=== PATIENT | female | born 1940 | race Caucasian/White ===

== ENCOUNTER → 2016-04-05 | Day surgery (SDC) | payer MEDICARE ==
--- NOTE | 2016-04-01 09:32 | HP ---
PREOPERATIVE HISTORY AND PHYSICAL: DATE OF SURGERY/ADMISSION: 04/05/16 PROCEDURE: Left proximal row carpectomy. CHIEF COMPLAINT: Left wrist pain. HISTORY OF PRESENT ILLNESS: This is a 75-year-old female with persistent pain in her left wrist that has been present for several years now. 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 The patient reports that the pain is getting gradually getting worse over time. She denies any numbness or tingling but has noticed a slight decrease in her range of motion. The patient has undergone a right wrist proximal carpectomy in the past, approximately [address] Wood and got great relief from that. 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 PAST MEDICAL HISTORY: 1. Hypertension. 2. Depression. 3. History of kidney stones. PAST SURGICAL HISTORY: 1. Hernia repair. 2. Bilateral total hip arthroplasties. 3. Kidney stone ablation. 4. Right wrist proximal row carpectomy. 5. Appendectomy. CURRENT MEDICATIONS: 1. Effexor XR 75 mg daily. 2. Hydrochlorothiazide 25 mg daily. ALLERGIES: PENICILLIN causes hives. FAMILY HISTORY: 1. Nonalcoholic cirrhosis. 2. Temporal arteritis. 3. Diabetes. SOCIAL HISTORY: Patient is employed as a potter. She denies tobacco use. She does admit to recreational marijuana smoking on occasion and admits to alcohol use on occasion. REVIEW OF SYSTEMS: General: Negative for fever, chills or night sweats. No known anesthesia problems. HEENT: Negative for headache, lightheadedness or syncopal episodes. Integumentary: Negative for abrasions, lesions or open wounds. Cardiothoracic: Negative for chest pain, palpitations or edema. Positive for hypertension. Pulmonary: Negative for shortness of breath with exertion, chronic cough, COPD. GI: Negative for nausea, vomiting, diarrhea, constipation or GERD. : Positive for history of kidney stones. Negative for nocturia, urinary frequency, urgency or history of UTIs. Musculoskeletal: Positive for current complaint. Negative for chronic or intermittent back pain or history of fractures. Neurological: Positive for depression. Negative for paresthesias, numbness, history of seizure, stroke or epilepsy. Endocrine: Negative for diabetes or thyroid issues. Hematologic: Negative for easy bruising, anemia, excessive bleeding or history of DVT. Infectious Disease: Negative for history of MRSA, hepatitis C or HIV. PHYSICAL EXAMINATION GENERAL: A well-developed, well-nourished 75-year-old female in no acute distress. VITAL SIGNS: Height 5 feet 3.5 inches, weight 136 pounds. Pulse rate 72, blood pressure 124/84. HEENT: Normocephalic, atraumatic. Pupils are equal, round and reactive to light and accommodation. Extraocular movements are intact. NECK: Supple. No palpable lymph nodes. Throat is clear. PULMONARY: Lungs are clear to auscultation bilaterally. No wheezes, rales or rhonchi. CARDIOTHORACIC: Regular rate and rhythm. S1, S2. No murmurs, rubs or gallops. No edema. ABDOMEN: Positive bowel sounds. Soft, nontender. MUSCULOSKELETAL: On exam of her left wrist there is no obvious deformity. There is minimal swelling. She has tenderness to palpation of the radiocarpal joint, more so on the radial side than on the ulnar side. She can flex to approximately 70 degrees and extend the wrist to approximately 70 degrees. She can make a fist and neurovascular function is intact. NEUROLOGICAL: Alert and oriented x3. Cranial nerves II through XII were intact. Sensation is intact to light touch. IMAGING STUDIES: X-rays of the left wrist, AP and lateral, show severe degenerative arthritis at the radioscaphoid joint. The lunate fossa appears preserved. 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 PLAN: The patient is scheduled to undergo a left wrist proximal row carpectomy with Dr. Wood on 04/05/16. She will return to the office 10 to 14 days postop for followup and suture removal. A prescription for [place] was e-scribed to the patient's pharmacy for postoperative pain management. TRACEY ALMAZAN [id number]/[facility] #: [id number] MTDGeetha
[~2016-04-05] MED LIST: Buffered Lidocaine 1% SYR 3ML* 3 ML/SYR SYRINGE INTRADERM ONE; Buffered Lidocaine 1% SYR 3ML* 3 ML/SYR SYRINGE ONE; Bupivacaine 0.5% SDV PF* 30 ML VIAL ONE; Clindamycin 900 MG IVPREMIX(* 900 MG/50 ML SDV IV ONE; HYDROcodone/ACETAMIN 5-325 MG* 1 TAB PO PRN; Ketorolac INJ* 30 MG/ML 1 ML VIAL ONE; Lidocaine 0.5%* 50 ML SDV ONE; Midazolam* 1 MG/ML 5 ML VIAL (5 MG) ONE; Ondansetron INJ* 2 MG/ML VIAL IV PRN; Propofol* 10 MG/ML 20 ML BTL IV PUSH ONE; fentaNYL* 50 MCG/ML 2 ML VIAL (100 MCG VIAL) IV PRN; fentaNYL* 50 MCG/ML 2 ML VIAL (100 MCG VIAL) ONE; oxyCODONE TAB* 5 MG TAB PO PRN
[2016-04-05 14:11] VITALS: BP 166/98
--- NOTE | 2016-04-06 00:48 | OP ---
DATE OF OPERATION: 04/05/16 - [facility] DATE OF : 42 SURGEON: Sarah Beth Wood MD COKE DRAWER: TRACEY Fields ANESTHESIOLOGIST: David Cuellar MD ANESTHESIA: IV regional. PRE-OP DIAGNOSIS: Left wrist arthritis. POST-OP DIAGNOSIS: Left wrist arthritis. OPERATIVE PROCEDURE: Left wrist proximal row carpectomy. ESTIMATED BLOOD LOSS: Zero. TOURNIQUET TIME: About 40 minutes. INDICATIONS FOR PROCEDURE: Alejandra is a 75-year-old female with arthritis of her left wrist from an old scapholunate ligament injury. She did very well on the right with a proximal row carpectomy and presents for the same on the left. Her lunate fossa and capitate articular surface are well preserved on x-ray. DESCRIPTION OF PROCEDURE: The patient was brought to the operating room, was given an IV regional anesthetic with a tourniquet around her left forearm. Skin of her left hand and forearm was prepped and draped in the usual sterile fashion. A longitudinal incision was made in the center of the dorsal aspect of the wrist. We dissected sharply down to the extensor retinaculum. The retinaculum was incised in the third compartment and the EPL tendon transposed radially. The wrist joint capsule was incised longitudinally and subperiosteally dissected off the distal radius. The scaphoid lunate and triquetrum were removed in their entirety in piecemeal fashion with a rongeur and the articular surface of the lunate fossa and capitate were in excellent condition. The capitate sat nicely in the lunate fossa. The wound was copiously irrigated with saline. The wrist joint capsule was reapproximated with 2-0 Polysorb suture, the retinaculum repaired with 2-0 Polysorb suture and the skin edges were reapproximated with 4-0 nylon suture. The wound was dressed with Xeroform, 4x4, Webril, and a volar splint. The patient tolerated the procedure well and was brought to the recovery room in good condition. [id number]/[facility] #: [id number] [facility]
== END | disposition home or self-care (01) ==
LOC: OREAST 10:13
PROVIDERS: ATTEND Orthopaedic Surgery
DX: M19.132 Post-traumatic osteoarthritis, left wrist (principal); I10 Essential (primary) hypertension
CPT/HCPCS: 88304; 88311; J1885; J2250; J2704; J3010

== ENCOUNTER 2017-12-16 12:29 | Observation (INO) | payer MEDICARE ==
--- NOTE | 2017-12-16 13:02 | ED ---
Neurological HPI - HPI Summary HPI Summary: 76 year old F presenting [facility] accompanied by male partner complains of confusion since 10:00 this morning. Symptoms aggravated by nothing. Symptoms alleviated by nothing. Her male partner reports that patient was asking repetitive questions and was unsure about what had happened last night and this morning. This morning, male partner and patient report having sexual intercourse before confusion began. He states he made her eat food and shower before coming to ED. - History of Current Complaint Chief Complaint: EDNeurologicalDeficit Stated Complaint: MEMORY ISSUES Time Seen by Provider: 12/16/17 12:51 Hx Obtained From: Patient, Other: - male partner Onset/Duration: Sudden Onset, Started hours ago - 10:00 today, Still Present Aggravating: Nothing Alleviating: Nothing - Allergy/Home Medications Allergies/Adverse Reactions: Allergies Allergy/AdvReac Type Severity Reaction Status Date / Time Penicillins Allergy Intermediate Rash Verified 12/16/17 14:02 PMH/Surg Hx/FS Hx/Imm Hx Previously Healthy: No Endocrine/Hematology History: Denies: Hx Sickle Cell Disease Cardiovascular History: Reports: Hx Hypertension - ON MEDS Denies: Hx Pacemaker/ICD, Other Cardiovascular Problems/Disorders Respiratory History: Denies: Other Respiratory Problems/Disorders GI History: Denies: Other GI Disorders History: Reports: Hx Kidney Stones - LEFT SIDE LITHOTRIPSY 2 YEARS AGO, Other Problems/Disorders - KIDNEY STONES Musculoskeletal History: Reports: Hx Arthritis - OSTEOARTHRITIS Denies: Hx Osteoporosis, Other Musculoskeletal History Sensory History: Reports: Hx Cataracts - HAD SURGERY, Hx Contacts or Glasses Denies: Hx Hearing Aid Opthamlomology History: Reports: Hx Cataracts - HAD SURGERY, Hx Contacts or Glasses Neurological History: Reports: Other Neuro Impairments/Disorders - LICHEN SCLEROSUS Psychiatric History: Reports: Hx Anxiety, Hx Depression - ON MEDICATION Denies: Hx Panic Disorder - Cancer History Hx Chemotherapy: No Hx Radiation Therapy: No - Surgical History Surgery Procedure, Year, and Place: LEFT HIP REPLACEMENT - [facility]. RIGHT HIP REPLACEMENT [facility]. [facility]. EXPLORATORY OF ABDOMIN - [facility]. APPENDECTOMY Hx Anesthesia Reactions: No Infectious Disease History: No Infectious Disease History: Denies: Traveled Outside the [place] in Last 30 Days - Family History Known Family History: Positive: Diabetes, Other - nonalcoholic cirrhosis, temporal arteritis - Social History Alcohol Use: Occasionally Hx Substance Use: No Substance Use Type: Reports: None Hx Tobacco Use: No Smoking Status (MU): Never Smoked Tobacco Review of Systems Negative: Fever Neurological: Other - confusion, repetitive questions and was unsure about what had happened last night and this morning All Other Systems Reviewed And Are Negative: Yes Physical Exam - Summary Physical Exam Summary: VITAL SIGNS: Reviewed. GENERAL: Patient is a well-developed and nourished female who is lying comfortable in the stretcher. Patient is not in any acute respiratory distress. HEAD AND FACE: No signs of trauma. No ecchymosis, hematomas or skull depressions. No sinus tenderness. EYES: PERRLA, EOMI x 2, No injected conjunctiva, no nystagmus. No photophobia. EARS: Hearing grossly intact. Ear canals and tympanic membranes are within normal limits. MOUTH: Oropharynx within normal limits. NECK: Supple, trachea is midline, no adenopathy, no JVD, no carotid bruit, no c- spine tenderness, neck with full ROM. No meningeal signs, no Kernig's or brudzinskis signs. CHEST: Symmetric, no tenderness at palpation LUNGS: Clear to auscultation bilaterally. No wheezing or crackles. CVS: Regular rate and rhythm, S1 and S2 present, no murmurs or gallops appreciated. ABDOMEN: Soft, non-tender. No signs of distention. No rebound no guarding, and no masses palpated. Bowel sounds are normal. EXTREMITIES: FROM in all major joints, no edema, no cyanosis or clubbing. NEURO: Alert and oriented x 3. No acute neurological deficits. Speech is normal and follows commands. SKIN: Dry and warm GCS: 15 Triage Information Reviewed: Yes Vital Signs On Initial Exam: Initial Vitals Temp Pulse Resp BP Pulse Ox 98.1 F 72 16 151/86 97 12/16/17 12:34 12/16/17 12:34 12/16/17 12:34 12/16/17 12:34 12/16/17 12:34 Vital Signs Reviewed: Yes Diagnostics - Vital Signs Vital Signs Temp Pulse Resp BP Pulse Ox 12/16/17 12:34 98.1 F 72 16 151/86 97 - Laboratory Result Diagrams: 12/17/17 04:58 12/17/17 04:58 Lab Statement: Any lab studies that have been ordered have been reviewed, and results considered in the medical decision making process. - Radiology CXR Radiology Interpretation Completed By: Radiologist - The lungs appear hyperaerated in the AP view, and appearance that can be seen with chronic obstructive pulmonary disease. Otherwise there are no radiographically apparent acute cardiopulmonary abnormalities. ED physician has reviewed this report. - CT Brain CT Interpretation Completed By: Radiologist - Normal CT of the brain. ED physician has reviewed this report. - EKG 1307 Cardiac Rate: NL - 76 BPM EKG Rhythm: Sinus Rhythm EKG Interpretation: No ST elevations. Normal axis. NIH Scale - NIH Scale Level of Consciousness: Alert/Keenly Responsive Ask Patient the Month and His/Her Age: Both Correct Ask Pt to Open/Close Eyes and Pipe Line Walker/Release Non-Paretic Hand: Both Correctly Best Gaze (Only Horizontal Eye Movement): Normal Visual Field Testing: No Visual Loss Facial Paresis-Pt to Smile & Close Eyes or Grimace Symmetry: Normal/Symmetrical Motor Function - Right Arm: No Drift-Holds 10 Seconds Motor Function - Left Arm: No Drift-Holds 10 Seconds Motor Function - Right Leg: No Drift-Holds 10 Seconds Motor Function - Left Leg: No Drift-Holds 10 Seconds Limb Ataxia-Must be out of Proportion to Weakness Present: Absent Sensory (Use Pinprick to Test Arms/Legs/Trunk/Face): Normal Best Language (Describe Picture, Name Items): No Aphasia Dysarthria (Read Several Words): Normal Extinction and Inattention: No Abnormality Total Score: 0 Course/Dx - Course Assessment/Plan: This patient is a 76-year-old female who presents to the emergency department with a significant other with a chief complaint of having confusion. The patient doesn't remember anything and she has no complaints. The significant other reports that at that have been sex this morning and afterwards at approximately 9:30 or 10 the patient became confused with repetitive questions. The symptoms lasted until the before she arrived to the emergency department. The patient continued to report that she doesn't remember what happened this morning. However at this time the patient is alert and oriented 3. She doesn't have any acute neurological focal deficits. The NIH score is equal to 0. Patient has past medical history significant for hypertension and depression and anxiety. EKG shows a sinus rhythm at [address] elevations. Blood work without any significant abnormality except for glucose of 133. Head CT impression: Normal CT of the brain. Chest x -ray impression: Lungs are clear hyperinflated in the AP view, BUNs that can be seen with chronic obstructive pulmonary disease. Otherwise no radiographic apparent acute cardiopulmonary abnormalities. In the ED course the patient was found to be hypertensive therefore the patient was given labetalol 20 mg IV. At this point I discussed my physical exam and findings with Dr. Mendoza from neurology and he is consulting for the patient. After his assessment he will recommends for the patient to be admitted to the hospital services for further workup in global amnesia vs hypertensive encephalopathy versus TIA. I discussed my physical exam, findings and test results with Dr. Crawley from the hospital services was accepted the patient for admission. - Differential Dx Differential Diagnoses Neuro: Positive: Cerebrovascular Accident, Seizure Disorder, Transient Ischemic Attack, Vasovagal Reaction - Diagnoses Provider Diagnoses: Hypertensive encephalopathy - Physician Notifications Discussed Care Of Patient With: Tomas Crawley Time Discussed With Above Provider: 15:19 Instructed by Provider To: Other - Dr. Crawley, hospitalist, agrees to admit patient Discharge - Sign-Out/Discharge Documenting (check all that apply): Patient Departure - Admit - Discharge Plan Condition: Stable Disposition: ADMITTED TO [facility] - Billing Disposition and Condition Condition: STABLE Disposition: Admitted to [facility] - Attestation Statements Document Initiated by Scribe: Yes Documenting Scribe: Adrianna Vick Provider For Whom Sharda is Documenting (Include Credential): Roberto Smith MD Scribe Attestation: I, Adrianna Vick, scribed for Roberto Smith MD on 12/17/17 at 1126. Scribe Documentation Reviewed: Yes Provider Attestation: The documentation as recorded by the scribeAdrianna accurately reflects the service I personally performed and the decisions made by me, Roberto Smith MD
[2017-12-16 13:35] LABS: ABS Basophils 0 10^3/ul (0-0.2); ABS Eosinophils 0 10^3/ul (0-0.6); ABS Lymphocytes 0.7 10^3/ul (1.0-4.8); ABS Monocytes 0.4 10^3/ul (0-0.8); ABS Neutrophils 3.6 10^3/ul (1.5-7.7); ABS Nucleated RBC 0 10^3/ul; Eosinophil % 0.9 % (0-6); Hematocrit 42 % (35-47); Hemoglobin 13.6 g/dl (12.0-16.0); Lymphocyte % 14.4 % (25-47); Mean Corpuscular HGB Conc 33 g/dl (31-36); Mean Corpuscular Hemoglobin 27 pg (27-31); Mean Corpuscular Volume 84 fL (80-97); Mean Platelet Volume 8.6 um3 (7.4-10.4); Nucleated Red Blood Cells % 0.1; Platelet Count 237 10^3/ul (150-450); Red Blood Count 4.97 10^6/ul (4.00-5.40); Red Cell Distribution Width 18 % (10.5-15); White Blood Count 4.8 10^3/ul (3.5-10.8)
[2017-12-16 13:46] LABS: EGFR Non-African American 75.3 (>60)
--- NOTE | 2017-12-16 13:59 | RAD ---
INDICATION: Altered mental status COMPARISON: Chest x-ray from June 30, 2004 will not open up at the time of this dictation. TECHNIQUE: Single AP portable view of the chest was obtained. FINDINGS: Image quality is compromised due to the relative inferiority of a portable chest x-ray. The heart and mediastinum exhibit normal size and contour. There is chronic appearing coarse calcification at the arch of the aorta. The lungs appear hyperaerated in the AP projection. The lungs are otherwise clear. Visualized bones are normal for the patient's age. IMPRESSION: The lungs appear hyperaerated in the AP view, and appearance that can be seen with chronic obstructive pulmonary disease. Otherwise there are no radiographically apparent acute cardiopulmonary abnormalities.
[2017-12-16 14:36] LABS: Urine Appearance Clear; Urine Blood Negative (Negative); Urine Color Straw; Urine Ketones Negative (Negative); Urine Protein Negative (Negative); Urine Urobilinogen Negative (Negative)
--- NOTE | 2017-12-16 14:40 | RAD ---
INDICATION: Altered mental status COMPARISON: None. TECHNIQUE: Contiguous axial sections of the brain were obtained from the skull base to the vertex without contrast. FINDINGS: The ventricles, cisterns and sulci exhibit mild symmetrical involutional changes.. The gaitan-white matter differentiation is adequately maintained and there is no sulcal effacement. No significant focal abnormality or mass effect is present. There is no evidence for intracranial hemorrhage. No significant focal osseous abnormality is present. The visualized portion of the paranasal sinuses appear clear. The mastoid air cells are well aerated bilaterally. IMPRESSION: Normal CT of the brain.
[2017-12-16] MEDS: Labetalol IV* 5 MG/ML 20 ML VIAL IV PUSH ONE ×2 (14:55→15:38)
[2017-12-16] MEDS ORDERED: Albuterol 2.5 MG/3 ML NEB.SOL* (0.083%) INH PRN (16:08)
[2017-12-16] MEDS ORDERED: Magnesium Hydroxide LIQ* 30 ML UDC PO PRN (16:08)
[2017-12-16] MEDS ORDERED: Al Hydrox/Mg Hydrox/Simet LIQ* 30 ML UDC PO PRN (16:08)
[2017-12-16] MEDS ORDERED: Acetaminophen TAB* 325 MG PO PRN (16:08)
[2017-12-16] MEDS ORDERED: Ondansetron INJ* 2 MG/ML VIAL IV PRN (16:08)
[2017-12-16] MEDS ORDERED: hydrALAZINE IV* 20 MG/ML VIAL IV SLOW PU PRN (16:11)
[2017-12-16] MEDS ORDERED: Aspirin TAB* 325 MG PO ONE (16:14)
[2017-12-16] MEDS ORDERED: Iohexol 350* (CONTRAST) 500 ML MDV IV ONE (16:25)
--- NOTE | 2017-12-16 18:47 | RAD ---
CPT II: CPT II Codes: 3100F INDICATION: "Memory issues" COMPARISON: Same day noncontrast CT of the brain. TECHNIQUE: A CT angiogram of the head and neck was performed with 80 cc of Omnipaque 350. Contiguous axial sections were obtained from the thoracic inlet through the [place]. Images were reconstructed in the sagittal, coronal planes and in a 3-D volume rendered format. The distal cervical internal carotid artery diameter is used as the denominater for stenosis measurement. CTA NECK: The common and internal carotid arteries are patent without hemodynamically significant stenosis. Right: Below the carotid bifurcation the right common carotid artery measures 6 mm in short axis diameter. There is a mild degree of calcified atherosclerosis at the right carotid bulb but the bulb measures 6 mm in short axis diameter yielding 0% degree stenosis. Left: Below the left carotid bulb the common carotid artery measures 6 mm in short axis diameter. There is mild calcified atherosclerosis at the left carotid bulb but the bulb measures 7 mm in short axis diameter yielding 0% degree stenosis. The vertebral arteries are patent without gross abnormality. CTA of the brain: There is coarse calcification in the bilateral petrous carotid arteries. The internal carotid, anterior and middle cerebral arteries appear are patent without high grade stenosis or occlusion. The left middle cerebral artery and distal branches are overall diminutive relative to the contralateral side but there is no abrupt filling defect or other morphological abnormality. The vertebral, basilar and posterior cerebral arteries appear patent without high grade stenosis or occlusion. The left posterior communicating artery appears to be absent or at least really diminutive causing the [place] to be incomplete. No focal luminal filling defect, aneurysm or vascular malformation is seen. NON-ARTERIAL FINDINGS: Patient appears to be status post left-sided thyroidectomy. IMPRESSION: 1. No carotid artery stenosis according to NASCET criteria. 2. The left middle cerebral artery and distal branches are overall relatively diminutive compared to the right side but are otherwise patent without abrupt filling defect or gross morphological abnormality.
[2017-12-16] MEDS: Heparin VIAL(*) 5000 UNITS/ML VIAL (FIVE THOUSAND) SUBCUT SCH (21:40)
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
--- NOTE | 2017-12-16 23:02 | HP ---
AMENDED REPORT NOW INCLUDES COSIGNER DESIGNATION - ESIGNED BEFORE ADJUSTMENT CC: Dr. oBone; Dr. Amado Mendoza * ADMISSION HISTORY AND PHYSICAL: DATE OF ADMISSION: 12/16/17. PATIENT OF ADMITTING HOSPITALIST: Dr. Tomas Crawley.* (DICTATED BY TRACEY SANFORD) PRIMARY CARE PROVIDER: Yovana Boone MD. CHIEF COMPLAINT: Generalized confusion and periods of amnesia. HISTORY OF PRESENT ILLNESS: Mrs. Pearce is a 76-year-old female with past medical history significant for hypertension, and depression, who presented to the emergency room earlier today with a generalized feeling of confusion about time, place, and things since early this morning. The patient states that she had a sexual intercourse with her partner last night for extended period of time after which she went to sleep, denied any trauma to the head, dizziness, or headaches. She got up this morning and had coffee and according to her partner, Fernandez Pastrana, she started to act "funny" by repeating a question and asking about time, and place thinking that she was in a different town, staying at a hotel. She had period of confusion that lasted approximately 2 hours this morning, however, she gradually started to resume her normal mental functions. She presented to the emergency room and was evaluated by Dr. Mendoza for neurological consultation. Her initial laboratory workup revealed a normal CBC and a normal chemistry panel. Her glucose was 133 and she was noted to have elevated blood pressure on presentation that reached 170s/120s. She received 2 doses of Lopressor intervenously in the ED with some improvement of her blood pressure reading. At the time of admission, she denies any significant symptoms. She has never had any dizziness, headache, chest pain, shortness of breath, or visual changes. She does not have any history of seizure and she denies any tremors and withdrawal symptoms. She did not drink any alcohol or use any illicit drugs last night. Her initial neurological exam revealed no evidence of any deficit and her brain CT was negative for any intracranial hemorrhage. MRI, CTA, TTE, and EEG are all pending at the time of admission. Given her ongoing symptoms, Neurology recommended keeping the patient overnight for close observation in telemetry unit as well as for frequent neurological checks, as well as further evaluation for what presumed to be a transient global amnesia. PAST MEDICAL HISTORY: Significant only for hypertension, and depression as well as nephrolithiasis. She denies any history of hypertension, diabetes mellitus, CVA, or TIA in the past. PAST SURGICAL HISTORY: Significant for: 1. Hernia repair. 2. Bilateral total hip arthroplasties. 3. Kidney stone ablation. 4. Right wrist carpal tunnel excision. 5. Appendectomy. 6. Corneal transplant. CURRENT MEDICATIONS: Her medication at home include: 1. Hydrochlorothiazide 25 mg p.o. daily. 2. Effexor 75 mg p.o. daily. ALLERGIES: She describe a reaction to PENICILLIN years ago, in the form of hives, but denies any true anaphylactic shock. FAMILY HISTORY: Significant for liver cirrhosis, nonalcoholic as well as diabetes and temporal arteritis. SOCIAL HISTORY: The patient does not smoke cigarettes. She admits to occasional recreational marijuana smoking, and she drinks alcohol occasionally. She is employed as a potter and she lives with a partner, who is the healthcare proxy and she wishes to be a full code. REVIEW OF SYSTEMS: See HPI. Otherwise, 12 points review of systems were examined and they were essentially negative. PHYSICAL EXAMINATION GENERAL: She is a pleasant, healthy-appearing, older female, in no acute distress or discomfort at the time of admission. VITAL SIGNS: Most recent set of vitals was temperature of 98.1, pulse of 67, blood pressure of 154/105, respirations of 20, with O2 sats of 93% on room air. HEENT: Head is normocephalic, atraumatic. Sclerae anicteric. PERRLA. EOMs intact. Oropharynx is pink and moist. NECK: Supple. Trachea midline. No cervical adenopathy, thyromegaly, or JVD. LUNGS: Clear to auscultation bilaterally. HEART: Regular rate and rhythm. Normal S1 and S2 without rubs, murmurs, or gallops. BACK: With normal curvature, no CVA tenderness. BREASTS: Exam deferred at this time. ABDOMEN: Soft, nontender, and nondistended. No hernias, masses, or hepatosplenomegaly. EXTREMITIES: Without cyanosis, clubbing, or edema. RECTAL: Exam deferred at this time. NEUROLOGIC: She is alert, oriented, and cooperative. Mood is normal. Affect is normal. Hand equipment oiler is equal bilaterally. Tongue is midline, and sensation is intact throughout. LABORATORY WORKUP: CBC with white count of 4800, hemoglobin of 13.6, hematocrit of 42, and platelets of 237. Chemistry panel with sodium of 138, potassium 3.7, chloride 104, CO2 of 29, BUN of 18, creatinine of 0.75. Her glucose is 133, magnesium 2.0. LFTs within normal limits and TSH is 1.57. Her urinalysis was normal, and urine toxicology was clear. ACCESSORY DIAGNOSTIC DATA: EKG was done revealing normal sinus rhythm with no ST changes. Her chest x-ray with no acute cardiopulmonary issues. Brain CT without evidence of intracranial bleeding or abnormality. IMPRESSION: A 76-year-old female with past medical history significant for hypertension and depression, who presented to the emergency room with a brief period of confusion and amnesia this morning lasting approximately 2 hours with some short memory loss and other signs consistent with probable transient global amnesia. ASSESSMENT AND PLAN: The patient will be admitted to the telemetry unit for observation overnight under the followin. Transient global amnesia. Neurological consultation is appreciated and the recommendations were made to get an MRI of the brain without contrast as well as CTA of the head and neck. We will also get a transthoracic echocardiogram and EEG during this admission. She was given a full dose of aspirin per recommendation, and I will go ahead and start giving her regular diet. She has no neurological deficits suggesting any possible cerebrovascular accident, however, we need to do more investigation regarding possibility of transient ischemic attack as well. I will await the results of her further workup and keep her on telemetry unit for close observation. I will also maintain neurological checks every 4 hours and likely to go home tomorrow if she remain stable. 2. Hypertension. The patient presents with elevated blood pressure up to 170 systolic. It seems to respond well to 2 doses of Lopressor in the emergency room. I will keep her on her hydrochlorothiazide for the time being and will provide as needed Lopressor or hydralazine to maintain her systolic blood pressure within 160. 3. Depression. I will keep her on Effexor, her home dose. 4. DVT prophylaxis: She is a high risk and we will keep her with subcu heparin. 5. Code status: She is a full code. TIME SPENT: Approximately 60 minutes were spent admitting this patient for which greater than 50% of this time on taking history and performing exam. I went on and discussed the case with my attending, Dr. Crawley, who was present in the room and interviewed and examined the patient himself and he agreed to plan of care. TRACEY SANFORD [id number]/[facility] #: [id number] GUTIERREZ
[2017-12-17 05:26] LABS: ABS Basophils 0.1 10^3/ul (0-0.2); ABS Eosinophils 0.1 10^3/ul (0-0.6); ABS Lymphocytes 1.4 10^3/ul (1.0-4.8); ABS Monocytes 0.5 10^3/ul (0-0.8); ABS Neutrophils 1.9 10^3/ul (1.5-7.7); ABS Nucleated RBC 0 10^3/ul; Eosinophil % 3.7 % (0-6); Hematocrit 39 % (35-47); Hemoglobin 12.8 g/dl (12.0-16.0); Lymphocyte % 34.5 % (25-47); Mean Corpuscular HGB Conc 33 g/dl (31-36); Mean Corpuscular Hemoglobin 27 pg (27-31); Mean Corpuscular Volume 84 fL (80-97); Mean Platelet Volume 8.6 um3 (7.4-10.4); Nucleated Red Blood Cells % 0; Platelet Count 224 10^3/ul (150-450); Red Blood Count 4.68 10^6/ul (4.00-5.40); Red Cell Distribution Width 18 % (10.5-15)
[2017-12-17] MEDS: Heparin VIAL(*) 5000 UNITS/ML VIAL (FIVE THOUSAND) SUBCUT SCH (05:27)
[2017-12-17 05:45] LABS: EGFR Non-African American 80.3 (>60)
[2017-12-17 07:50] VITALS: BP 132/92
[2017-12-17] MEDS ORDERED: Hydrochlorothiazide TAB* 25 MG PO SCH (09:00)
[2017-12-17] MEDS ORDERED: Venlafaxine EXT RELEASE CAP* 75 MG PO SCH (09:00)
--- NOTE | 2017-12-17 11:55 | CONS ---
CC: Dr. Boone * NEUROLOGY FOLLOWUP NOTE: DATE OF FOLLOWUP: 12/17/17 LOCATION: She is an inpatient in room 432. HOSPITALIST: Dr. Carlisle. CHIEF COMPLAINT: Amnesia. INTERVAL HISTORY: Since yesterday, Alejandra feels fine. She does not recall the details of coming to the hospital, but recalls everything after that. She did have a dull headache last night. It went away when she had some coffee this morning. Here, she feels perfectly well currently. She feels her memory is working normally now. MEDICATIONS: Reviewed and she is on: 1. Heparin 5000 units subcutaneous q.8 hours. 2. Hydrochlorothiazide 25 mg p.o. q. day. 3. Venlafaxine 75 mg p.o. q. day. PHYSICAL EXAM: Temperature is 97.5, blood pressure 132/92, heart rate is in the 50s and regular. Language is fluent. She is a good historian with intact recent memory. Gait is stable. IMPRESSION AND PLAN: Impression is that of transient global amnesia. The likelihood of recurrence is low. I still think she should have a workup for transient ischemic attack or seizures; this can be done as an outpatient given the low likelihood of finding symptomatic etiology. Plan to get an outpatient MRI scan of her brain and EEG and see her in followup in my office. Discussed the plan with Alejandra and also Dr. Carlisle. [id number]/[facility] #: [id number] GUTIERREZ
--- NOTE | 2017-12-17 14:46 | DS ---
CC: Dr. Yovana Boone; Dr. Mendoza * DISCHARGE SUMMARY: DATE OF ADMISSION: 12/16/17 DATE OF DISCHARGE: 12/17/17 PRIMARY CARE PROVIDER: Dr. Yovana Boone. DISCHARGE DIAGNOSIS: Transient altered mental status and problems with memory, likely related to transient global amnesia, resolved. SECONDARY DIAGNOSES: 1. Hypertension. 2. History of hernia repair. 3. History of bilateral total hip arthroplasties. 4. History of kidney stone ablation. MEDICATIONS AT DISCHARGE: Unchanged from admission and include: 1. Hydrochlorothiazide 25 mg daily. 2. Effexor 75 mg daily. LABORATORY DATA AND STUDIES PERFORMED DURING THE HOSPITAL STAY: Included on , white blood cell count of , hemoglobin of 12.8, hematocrit of 39, and platelets of 224. Sodium was 140, potassium was 3.5, chloride 104, carbon dioxide 31, BUN 14, creatinine 0.7. TSH was 1.5 at admission. Urinalysis was unremarkable. Urine tox screen was unremarkable. CT angiogram of the head and neck obtained at admission showed "status post left - sided thyroidectomy. No carotid artery stenosis. Left middle cerebral artery and distal branches are overall relatively diminutive compared to the right side, but are otherwise patent without abrupt filling defect or gross morphological abnormality." CONSULTATION DURING THE HOSPITAL STAY: Included Dr. Mendoza from Neurology. HOSPITALIZATION COURSE: Alejandra Pearce is a 76-year-old female with history of hypertension, who had an episode of altered mental status and forgetfulness after sexual intercourse. It lasted approximately 2 hours and resolved spontaneously. She was placed on overnight observation due to that. Her telemetry monitored bed showed no abnormalities. Her CT angiogram of the head and neck was as noted above, pretty unremarkable. She had normal neuro checks throughout her hospital stay. She was seen by Dr. Mendoza in Neurology consultation, who diagnosed the patient with transient global amnesia. The patient is to follow up with Dr. Mendoza as an outpatient in approximately 2 to 3 weeks for further workup that may include MRI. PHYSICAL EXAMINATION: At the time of discharge, blood pressure of 132/92, heart rate of 58 and regular, respiratory rate 16, oxygen saturation 100% on room air, temperature 97.5. General: The patient is a pleasant 76-year-old female, who looks younger than stated age. The patient is in no acute distress. Alert, awake, and oriented x3. HEENT: Head: Atraumatic, normocephalic. Eyes: Pupils are equal, reactive to light and accommodation. Oropharynx is clear. Mucosa moist. Neck: Supple. No JVD. No bruits bilaterally. Cardiovascular: Regular rate and rhythm. No murmur. Respiratory : Clear to auscultation bilaterally. Abdomen: Soft, nontender. Bowel sounds are present in all 4 quadrants. Extremities: There is no edema. Pulses are + 2 bilaterally. No clubbing or cyanosis. Neuro Evaluation: Speech is clear. Cranial nerves II through XII are grossly intact. Motor strength is 5/5 bilaterally. Please note that this is a short summary of the patient's hospital stay. Please refer to further medical records for details. [id number]/[facility] #: [id number] MTDD
== END 2017-12-17 13:15 | disposition home or self-care (01) ==
LOC: ED 12:29 → MEDTELE 17:09
PROVIDERS: ADMIT Student in an Organized Health Care Education/Training Program; ATTEND Internal Medicine
DX: R41.82 Altered mental status, unspecified (principal); G45.4 Transient global amnesia; I10 Essential (primary) hypertension; Z88.0 Allergy status to penicillin; F32.9 Major depressive disorder, single episode, unspecified; Z79.899 Other long term (current) drug therapy; R94.31 Abnormal electrocardiogram [ECG] [EKG]
CPT/HCPCS: 36415; 70450; 70496; 70498; 71045; 80048; 80053; 80307; 80320; 80329; 81003; 82140; 82550; 83605; 83735; 84443; 84484; 85025; 93005; 96372; 96374; 99283; A9270-GY; G0378; G0480; J1644; Q9967